=== PATIENT | female | born 1955 ===

== ENCOUNTER 2016-11-15 16:41 | Emergency (ER) | payer OTHER ==
[2016-11-15 16:48] VITALS: PULSE 90; RESP 16; TEMP 97.9; O2SAT 98
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
[2016-11-15 17:30] VITALS: BP 148/88
== END 2016-11-15 17:44 | disposition home or self-care (01) ==
LOC: H.ER 16:41
DX: S80.01XA Contusion of right knee, initial encounter (principal); V89.2XXA Person injured in unspecified motor-vehicle accident, traffic, initial encounter